=== PATIENT | male | born 1985 | race Caucasian/White ===

== ENCOUNTER → 2021-01-22 | Outpatient (CLI) | payer OTHER ==
--- NOTE | 2021-01-22 22:47 | MR ---
EXAMINATION TYPE: MR knee LT wo con DATE OF EXAM: 01/22/2021 COMPARISON: Outside knee x-ray January 10, 2021 HISTORY: Left knee pain and swelling for 5 years, prev surgery 15 yrs ago TECHNIQUE: Multiplanar, multisequence imaging of the left knee is performed without IV contrast. FINDINGS: MEDIAL MENISCUS: Markedly truncated appearance to the medial meniscus especially central body. Suspec t product of prior surgery. LATERAL MENISCUS: Anterior and posterior horns are intact without tear. CRUCIATE LIGAMENTS: The posterior cruciate ligament is intact. There is artifact from surgical repair of the anterior cruciate ligament. Normal-appearing anterior cruciate ligament fibers are identified , recurrent full-thickness tear is felt present. COLLATERAL LIGAMENTS: The medial collateral ligament and lateral collateral ligament complex are inta ct . EXTENSOR MECHANISM: Visualized quadriceps and patellar tendons are intact. EFFUSION: No significant suprapatellar joint effusion. POPLITEAL CYST: No popliteal/parrish cyst. TRICOMPARTMENT SPACES: Moderate to severe tricompartment joint space loss and spurring CARTILAGE: Significant chondromalacia patella, full thickness loss Medial aspect posterior patellar pole noted. Marked cartilaginous loss medial lateral tibiofemoral co mpartments greatest lateral tibiofemoral compartment. BONE MARROW SIGNAL: Artifact from surgical hardware makes evaluation slightly suboptimal.. OTHER: No additional significant abnormality is appreciated. IMPRESSION: 1. Moderate to advanced tricompartment degenerative changes somewhat prominent for patient's chronolo gic age. 2. Recurrent ACL tear since reconstruction surgery 15 years ago. 3. Truncated appearance medial meniscus favored product of prior surgery versus tear.
== END ==
LOC: RADMRIMAIN 18:57
PROVIDERS: ATTEND Orthopaedic Surgery
DX: M17.12 Unilateral primary osteoarthritis, left knee (principal); M23.612 Other spontaneous disruption of anterior cruciate ligament of left knee

== ENCOUNTER → 2021-02-17 | Outpatient (CLI) | payer OTHER ==
[2021-02-17 12:59] LABS: Basophils % (A) 1 %; Eosinophils % (A) 1 %; HCT 44.6 % (39.0-53.0); HGB 15.4 gm/dL (13.0-17.5); Lymphocytes # (A) 1.5 k/uL (1.0-4.8); Lymphocytes % (A) 35 %; MCH 31.9 pg (25.0-35.0); MCHC 34.6 g/dL (31.0-37.0); MCV 92.1 fL (80.0-100.0); Mean Platelet Volume 7.5; Monocytes # (A) 0.3 k/uL (0-1.0); Monocytes % (A) 6 %; Neutrophils # (A) 2.5 k/uL (1.3-7.7); Neutrophils % (A) 56 %; Platelet Count 222 k/uL (150-450); RBC 4.84 m/uL (4.30-5.90); RDW 12.4 % (11.5-15.5); WBC 4.4 k/uL (3.8-10.6)
== END | disposition home or self-care (01) ==
LOC: LABPAT 11:01
PROVIDERS: ATTEND Orthopaedic Surgery
DX: Z01.818 Encounter for other preprocedural examination (principal); M23.92 Unspecified internal derangement of left knee
CPT/HCPCS: 80051; 85025

== ENCOUNTER 2021-03-26 10:36 | Day surgery (SDC) | payer OTHER ==
[2021-02-17 15:25] VITALS: BMI 31.8
--- NOTE | 2021-03-25 15:29 | HP ---
HISTORY AND PHYSICAL DATE OF SURGERY: 03/26/2021 Christopher Stephenson is a 35-year-old gentleman seen with progressive left knee pain. We discussed options for treatment. He elects to proceed with arthroscopy. Consent was obtained. PAST MEDICAL HISTORY: Anxiety, asthma, hypertension. PAST SURGICAL HISTORY: Left knee arthroscopy. DAILY MEDICATIONS: None. ALLERGIES: None. SOCIAL HISTORY: Denies tobacco use. PHYSICAL EVALUATION OF THE LEFT KNEE: He has a previous history of well-healed arthroscopic portal sites. Range of motion is -3/4 to 120. Mild effusion. Tenderness along the medial and lateral joint line. Positive medial Rebecca's. Positive lateral Rebecca's, +1/2 Aniket. Distal neurovascular exam intact. Hip rotation without pain. Radiographs of the left knee revealed evidence of moderate osteoarthritis. There are metallic interference screws, metallic pin consistent with previous ACL reconstruction. MRI of the left knee revealed ACL tear, possible meniscal tear osteoarthritis. IMPRESSION: 1. Internal derangement left knee with ACL tear and possible meniscal tear. 2. Left knee osteoarthritis. PLAN: Left knee arthroscopy with debridement, ACL tear. MMODL / IJN: [id number] /
[~2021-03-26 10:36] MED LIST: CLINDAMYCIN 900 MG in DEXTROSE 5% IN WATER 50 ML IVPB PRN; HYDROmorphone 0.5 MG/0.5 ML SYRINGE IVP PRN; LACTATED RINGERS 1,000 ML IV SCH; ONDANSETRON 4 MG/2 ML VIAL IVP ONE; fentaNYL (PF) 50 MCG/ML 2 ML AMP IV PRN
[2021-03-26] MEDS ORDERED: LACTATED RINGERS 1,000 ML IV ONE (11:21)
[2021-03-26] MEDS ORDERED: LIDOCAINE 1% (10MG/ML) FOR IV START INTRADERMA ONE (11:21)
[2021-03-26] MEDS ORDERED: ONDANSETRON 4 MG/2 ML VIAL ONE (11:22)
[2021-03-26] MEDS ORDERED: DEXAMETHASONE SOD PHOSPHATE 4 MG/ML 1 ML VIAL IVP ONE (11:24)
[2021-03-26] MEDS ORDERED: ONDANSETRON 4 MG/2 ML VIAL IVP ONE (11:25)
[2021-03-26] MEDS ORDERED: PROPOFOL 10 MG/ML 20 ML VIAL IV ONE (11:35)
[2021-03-26] MEDS ORDERED: LIDOCAINE 1% INJ 10MG/ML (20 ML MDV) ONE (11:35)
[2021-03-26] MEDS ORDERED: fentaNYL (PF) 50 MCG/ML 2 ML AMP ONE (11:35)
[2021-03-26] MEDS ORDERED: MIDAZOLAM 2 MG/2 ML VIAL ONE (11:35)
[2021-03-26] MEDS ORDERED: BUPIVACAINE (PF) 0.25% 30 ML VIAL SQ ONE ×2 (11:53→12:05)
[2021-03-26 12:19] VITALS: TEMP 97
[2021-03-26] MEDS: HYDROmorphone 1 MG/ML 1 ML SYRINGE IVP ONE ×2 (12:24→12:33)
--- NOTE | 2021-03-26 12:26 | P.OP ---
Date of Procedure: 03/26/21 Preoperative Diagnosis: Internal derangement left knee Postoperative Diagnosis: 1. Medial meniscal tear left knee 2. Grade 2/3 chondromalacia medial femoral condyle left knee 3. Reactive synovitis medial, lateral and suprapatellar compartments left knee 4. Loose body left knee Procedure(s) Performed: 1. Arthroscopic partial medial meniscectomy left knee 2. Arthroscopic chondroplasty medial femoral condyle left knee 3. Arthroscopic partial synovectomy medial, lateral and suprapatellar compartments left knee 4. Arthroscopic removal loose body left knee Anesthesia: JEANNE, local Surgeon: Tristin Lala Estimated Blood Loss (ml): 7 Pathology: none sent Condition: stable Disposition: PACU Indications for Procedure: 35-year-old patient seen with progressive left knee pain. After treatment options were discussed, he elected to proceed with arthroscopy. Operative Findings: See description of procedure Description of Procedure: Patient was taken to the operative suite. Patient underwent a general anesthetic by the department of anesthesia. Patient was given preoperative antibiotics. The left lower extremity was placed in a well-padded arthroscopic leg koenig. The left leg was prepped and draped in the normal sterile orthopedic fashion. A lateral parapatellar and suprapatellar incision was made. Trochars were inserted. Arthroscopy was initiated. Suprapatellar pouch revealed diffuse thick reactive synovitis. The patellofemoral joint appeared to articulate congruently. There grade 1 chondromalacia with no osteochondral tears present. The scope was guided into the medial gutter. There were no loose bodies, there was no plica. The scope was then guided into the medial compartment. A medial parapatellar incision was made. Trocar inserted followed by probe. There was a complex tear posterior horn medial meniscus. There were grade 2/3 chondromalacia changes of the medial femoral condyle with osteochondral tears present. There was thick reactive synovitis anteriorly. I performed a partial medial meniscectomy getting down to stable meniscal tissue. I performed a chondroplasty of the medial femoral condyle getting down to stable osteochondral tissue. I performed a partial synovectomy decompressing thick reactive synovitis. Scope and probe were then guided into the intercondylar notch. The remnant ACL appeared torn. There was a large loose body in the intercondylar notch area. I introduced a loose body forceps and remove the loose body without difficulty. I now debrided out the residual fibers of the ACL graft. I could visualize the PCL. The ACL was completely absent. The scope and probe were then guided into lateral compartment. Lateral meniscus was stable. There were some grade 1 chondromalacia changes lateral compartment. There was thick reactive synovitis anteriorly. I introduced the motorized shaver and performed a partial synovectomy. The shaver was removed. There was good decompression of synovitis. The scope was in guided back into the brandon prapatellar compartment. I introduced a motorized shaver into the suprapatellar compartment. I debrided some piecemeal fragments of meniscus I encountered. I performed a partial synovectomy decompressing thick reactive synovitis. The shaver was removed. I took one more look on the entire knee, no residual debris. Instruments were now removed from the joint. The joint was infiltrated with .25% Marcaine. Steri-Strips were applied to the portal sites. Sterile dressings were applied. The patient was placed into a PRATIK hose. No tourniquet was utilized. The patient was awakened, transferred to a bed and taken to recovery stable satisfactory condition.
[2021-03-26 13:24] VITALS: RESP 16
[2021-03-26 14:40] VITALS: BP 141/78; PULSE 75
== END 2021-03-26 14:35 | disposition home or self-care (01) ==
LOC: OR 10:36
PROVIDERS: ATTEND Orthopaedic Surgery
DX: M23.204 Derangement of unspecified medial meniscus due to old tear or injury, left knee (principal); M94.262 Chondromalacia, left knee; M65.862 Other synovitis and tenosynovitis, left lower leg; M23.42 Loose body in knee, left knee; I10 Essential (primary) hypertension; M48.00 Spinal stenosis, site unspecified; J45.909 Unspecified asthma, uncomplicated; F41.9 Anxiety disorder, unspecified; Z98.890 Other specified postprocedural states; Z88.1 Allergy status to other antibiotic agents; Z88.0 Allergy status to penicillin
CPT/HCPCS: 29881; 29876; J2250; J1100; J2405; J2001; J3010; J1170; J2704